=== PATIENT | female | born 1995 ===

== ENCOUNTER 2018-08-27 23:07 | Emergency (ER) | payer OTHER ==
--- NOTE | 2018-08-27 23:11 | EDPHY ---
H & P Stated Complaint: med clear Time Seen by Provider: 08/27/18 23:10 HPI/ROS: HPI The patient presents with medical clearance for long-term. The patient reports that she was drinking alcohol tonight. She [place] [facility] [place] [employer] [facility]. She was asked to leave and then when out into the street and began to yell and scream and became very upset. Police were called to the scene and she is here for medical clearance. She is refusing all testing including vital sign check. She is concerned about receiving a bill.. REVIEW OF SYSTEMS 10 systems were reviewed and negative with the exception of the elements mentioned in the history of present illness. PMHx: Unknown, unable to obtain given patient's mental status Soc Hx: Alcohol abuse PHYSICAL General Appearance: Screaming and kicking Eyes: Pupils equal and round no pallor or injection ENT, Mouth: Mucous membranes moist Respiratory: Breathing comfortably Neurological: A&O, moves all extremities Skin: Warm and dry, no rashes Extremities: symmetrical, full range of motion Psychiatric: Patient is oriented X 3, she is agitated Source: Patient Exam Limitations: Intoxication Allergies/Adverse Reactions: Unable to Assess Allergy (Unverified 08/27/18 23:11) Home Medications: Medication Instructions Recorded Unobtainable 08/27/18 Medical Decision Making Differential Diagnosis: 24-year-old female presents for medical clearance for long-term. She was found in a sorority house after consuming alcohol. She was asked to leave and then became agitated police were called. The patient denies any injuries any body pain. She refuses any testing in the emergency department including vital signs checked. I suspect she has alcohol intoxication, possible polysubstance abuse. I do not identify any external signs of trauma. I doubt intracranial hemorrhage. She will be medically clear for long-term. Departure - Departure Disposition: Law Enforcement/Court/Long Term Clinical Impression: Medical clearance for incarceration, Agitation Alcohol intoxication Qualifiers: Complication of substance-induced condition: with delirium Qualified Code(s): F10.921 - Alcohol use, unspecified with intoxication delirium Condition: Good Instructions: Alcohol Intoxication (ED) Additional Instructions: The patient is medically clear for long-term. Referrals: [facility] Hours [Outside] - As per Instructions
== END 2018-08-27 23:35 ==
DX: Z02.89 Encounter for other administrative examinations (principal); F10.921 Alcohol use, unspecified with intoxication delirium; R45.1 Restlessness and agitation